=== PATIENT | female | born 1990 | race Caucasian/White ===

== ENCOUNTER 2020-03-24 10:04 | Emergency (ER) | payer OTHER, SELFPAY ==
--- NOTE | 2020-03-24 10:18 | ED.URI ---
HPI - URI/Sore Throat General Chief Complaint: Upper Respiratory Infection Stated Complaint: sore throat/neck sore Source: patient Mode of arrival: ambulatory Limitations: no limitations History of Present Illness HPI Narrative: Patient is a 29-year-old female who presents complaining of sore throat, mild body aches and fever x 3-4 days. Patient's temp is 99.2 at this time. Patient is unaware of known Covid exposure. Patient does work at an [employer] hospital and is exposed to the general public. She denies taking [id number] meds for symptom relief at this time. MD elicited complaint: fever and sore throat Related Data Allergies Allergy/AdvReac Type Severity Reaction Status Date / Time Penicillins Allergy Mild Hives Verified 03/24/20 10:28 Review of Systems Review of Systems: Narrative: CONSTITUTIONAL: Reports fever EYES: Denies visual changes, redness, or discharge. ENT: Reports sore throat, denies rhinorrhea congestion or otalgia CARDIOVASCULAR: Denies chest pain, palpitations, or edema. RESPIRATORY: Denies cough or dyspnea. GASTROINTESTINAL: Denies abdominal pain, nausea, vomiting, or diarrhea. GENITOURINARY: Denies dysuria or hematuria. SKIN: Denies rash or itching. MUSCULOSKELETAL: Denies back pain, joint pain, or myalgia. NEUROLOGIC: Denies headache, numbness, dizziness, or weakness. PSYCHIATRIC: Denies anxiety or depression. [facility] Past Medical History Medical History (Updated 03/24/20 @ 11:12 by ARLETH rBady) Seasonal allergies Surgical History Surgical History (Updated 03/24/20 @ 10:26 by ARLETH Brady) No significant past surgical history Family History Family History (Updated 03/24/20 @ 10:26 by ARLETH Brady) Other No significant family history Social History Social History (Updated 03/24/20 @ 10:26 by ARLETH Brady) Smoking status: Never smoker Alcohol intake: current Alcohol use details: occasional Substance use: never Living arrangements: with family Comments At the time of signature, I have reviewed and agree with nursing past medical, surgical, social, and family history unless otherwise noted. Please see nursing chart for further information. There is no relevant family history pertinent to the presenting complaint. Exam Narrative: Exam Narrative: GENERAL: Well-appearing, well-nourished, and in no acute distress. HEAD: Normocephalic, atraumatic. EYES: No redness or drainage. Conjunctiva are normal. ENT: Mucous membranes pink and moist. Nares clear. No rhinorrhea. Throat with moderate erythema, edema and exudate. Uvula midline. NECK: AROM. Supple. No lymphadenopathy. CHEST: No respiratory distress. HEART: Regular rate and rhythm. EXTREMITIES: Normal range of motion. SKIN: Warm, dry, no rash. NEURO: No focal deficits. Alert and oriented x3. Gait steady. PSYCH: Normal affect. No signs of depression or anxiety. MDM - URI/Sore Throat MDM Narrative Medical decision making narrative: Patient's rapid strep, Monospot, rapid Covid are negative. Covid PCR sent at this time. Patient to be treated for tonsillitis with azithromycin as she has an allergy to penicillin. Discussed with patient Covid testings and quarantine. Patient is stable for discharge home with outpatient follow-up as needed Differential Diagnosis Differential diagnosis: Likely viral infection, pharyngitis and other (Tonsillitis) Critical Care Time Critical Care Time Critical Care Time: No Discharge Plan Discharge Clinical Impression: Acute tonsillitis Qualifiers: Pharyngitis/tonsillitis etiology: unspecified etiology Qualified Code(s): J03.90 - Acute tonsillitis, unspecified Patient Disposition: Home, Self-Care Condition: Stable Instructions: Antibiotic Form, Tonsillitis (ED), COVID-19 (Coronavirus Disease 2019) (ED) Additional Instructions: Your rapid strep was negative, Covid testing results should be available within 24 to 48 hours. Please
[2020-03-24 10:26] VITALS: BP 134/94; PULSE 89; RESP 18; TEMP 37.3; O2SAT 100
[2020-03-25 16:45] LABS: SARS-CoV-2 RNA PCR Negative
== END 2020-03-24 11:32 | disposition home or self-care (01) ==
PROVIDERS: Emergency Provider Nurse Practitioner
DX: J03.90 Acute tonsillitis, unspecified (principal); Z20.822 Contact with and (suspected) exposure to COVID-19
CPT/HCPCS: 36416; 86308; 87081; 87426; 87880; 99213; C9803; G0463; U0003; U0005